=== PATIENT | female | born 1960 | race Caucasian/White ===

== ENCOUNTER 2018-06-10 14:37 | Emergency (ER) | payer OTHER ==
[2018-06-10] MEDS ORDERED: IBUPROFEN 600 MG TABLET (FP) PO ONE ×2 (14:40→15:05)
--- NOTE | 2018-06-10 14:41 | PDOC ---
History of Present Illness - General Chief Complaint: Injury Stated Complaint: LEFT THUMB INJURY - History of Present Illness Initial Comments: 58 year old female with PMH of menopause (hormone replacement therapy) and ADHD presenting with left thumb pain after tripping over a rolled up carpet while trying ot clear a space for the tree. She states the tripped forward onto her floor and banged her left knee, scraped her left forearm, and suffered severe pain in her left thumb without obvious initial deformity. Her fall motion was forward on an outstretched hand originally. Denies any head trauma, LOC, ches tpain, syncope, or other symptoms. 06/10/18 15:34 Past History - Past Medical History Allergies/Adverse Reactions: Allergies Allergy/AdvReac Type Severity Reaction Status Date / Time latex Allergy Intermediate Itching Verified 06/10/18 14:45 Home Medications: Ambulatory Orders Dextroamphetamine/Amphetamine [Adderall Xr 30 mg Capsule] 1 cap PO DAILY Estrogen,Con/M-Progest Acet [Prempro 0.45-1.5 mg Tablet] 1 tab PO DAILY Naproxen Sodium 550 mg PO BID PRN 10 Days #60 tablet 06/10/18 Psychiatric Problems: Yes Thyroid Disease: Yes - Immunization History Immunization Up to Date: Yes - Suicide/Smoking/Psychosocial Hx Smoking History: Current every day smoker Have you smoked in the past 12 months: Yes Number of Cigarettes Smoked Daily: 5 'Breaking Loose' booklet given: 08/10/15 Hx Alcohol Use: No Drug/Substance Use Hx: No Substance Use Type: None Review of Systems - Review of Systems Constitutional: No: Chills, Diaphoresis HEENTM: No: Eye Pain, Blurred Vision, Tearing, Nose Pain, Tinnitus Respiratory: No: Cough, Orthopnea, Shortness of Breath Cardiac (ROS): No: Edema, Irregular Heart Rate ABD/GI: No: Diarrhea, Nausea, Vomiting : No: Burning, Dysuria, Discharge Musculoskeletal: No: Back Pain, Joint Pain Integumentary: No: Bruising, Change in Color, Flushing, Lesions Neurological: No: Headache, Numbness, Paresthesia Psychiatric: No: Anxiety, Depression Endocrine: No: Flushing, Intolerance to Cold, Increased Thirst Hematologic/Lymphatic: No: Anemia, Blood Clots, Easy Bleeding *Physical Exam - Physical Exam General Appearance: Yes: Nourished, Appropriately Dressed. No: Apparent Distress HEENT: positive: EOMI, TIMOTHY, Normal ENT Inspection, Normal Voice Neck: positive: Trachea midline, Normal Thyroid, Supple. negative: Tender, Rigid Respiratory/Chest: positive: Lungs Clear, Normal Breath Sounds. negative: Chest Tender, Respiratory Distress, Accessory Muscle Use Cardiovascular: positive: Regular Rhythm, Regular Rate Gastrointestinal/Abdominal: positive: Normal Bowel Sounds, Flat, Soft. negative : Tender Lymphatic: negative: Adenopathy, Tenderness Musculoskeletal: positive: Decreased Range of Motion (left base of thumb and anatomic snuff box tenderness with slightly decreased ROM at thumb. No limitation with arm bending, supination, or pronation. ). negative: Normal Inspection Extremity: positive: Normal Capillary Refill, Tender. negative: Normal Inspection, Normal Range of Motion Integumentary: positive: Normal Color, Dry, Warm Neurologic: positive: Fully Oriented, Alert, Normal Mood/Affect, Normal Response , Motor Strength 5/5 Procedures - Splinting Splint Location: Left: Finger Pre-Proc Neuro Vasc Exam: normal Hand-Made Type: orthoglass Splint Type: Yes: Thumb Spica Post-Proc Neuro Vasc Exam: normal Jonathan Bandage: yes, 4" Sling: Yes Complications: No Post splint xray: No ED Treatment Course - RADIOLOGY Radiology Studies Ordered: Category Date Time Status WRIST W/HAND-LEFT* [RAD] Stat Radiology 06/10/18 14:39 Ordered Medical Decision Making - Medical Decision Making 58 year old with left thumb pain and tenderness after a fall forward on her outstretched hand. Hand/ wrist XR demonstrating distal fracture of left thumb and degenerative changes at base. However, anatomic snuff box tenderness cannot exclude occult scaphoid fracture. Thumb spica cast placed and patient discharged with naproxen and follow up with [facility]. 06/10/18 16:10 *DC/Admit/Observation/Transfer Diagnosis at time of Disposition: Fracture of thumb, left, closed Qualifiers: Encounter type: initial encounter Phalanx: distal Fracture alignment: displaced Qualified Code(s): S62.522A - Displaced fracture of distal phalanx of left thumb, initial encounter for closed fracture - Discharge Dispostion Condition at time of disposition: Improved Decision to Admit order: No - Prescriptions Prescriptions: Naproxen Sodium 550 mg PO BID PRN 10 Days #60 tablet PRN Reason: Sever thumb pain - Referrals Referrals: Tanmay Green MD [Staff Physician] - - Patient Instructions Printed Discharge Instructions: DI for Finger Fracture Additional Instructions: You fracture the end of your thumb. Please do not get the cast wet or remove it until you see Dr. Green. Please make an appointment with him ARLYN. Use the naproxen up to ttwice a day as needed for your thumb pain. Please return to the ED if you have new or worsening symptoms. - Post Discharge Activity
[2018-06-10 15:03] VITALS: BP 127/78; PULSE 89; TEMP 97.3; BMI 25.7
--- NOTE | 2018-06-10 15:55 | PDOC ---
Attending Attestation - Resident Resident Name: Ashley Judd - ED Attending Attestation I have performed the following: I have examined & evaluated the patient, The case was reviewed & discussed with the resident, I agree w/resident's findings & plan, Exceptions are as noted - HPI HPI: 06/10/18 15:52 Patient fell on her outstretched hand today, injuring her right thumb and right wrist. Complains of pain, specifically in the IPJ of the right thumb and the first CMC J. No other injuries were reported including injuries to the head neck chest abdomen spine pelvis or other extremities. 06/10/18 15:55 - Physicial Exam PE: 06/10/18 15:54 Physical exam reveals swelling and point tenderness of the IPJ. There is no angular or rotational deformity The MCP J shows no swelling or tenderness, and good range of motion. There was no stress tenderness of the UCL Swelling and tenderness is present at the CMC J without deformity. There are ecchymoses of the IPJ and CMC J. pulses are full, capillary refill intact in all 5 digits, and no distal sensory deficits. Motion of the IPJ is obviously restricted due to the injury 06/10/18 15:55 06/10/18 16:05 - Medical Decision Making 06/10/18 15:56 Assessment: X-ray reveals a fracture of the distal phalanx of the thumb, mid shaft, without apparent joint involvement. There are also extensive degenerative changes at the CMC J, making an occult fracture difficult to determine. However radiology reading is negative. 06/10/18 15:57 Plan: The thumb and wrist immobilized in a thumb spica. After splinting, the patient was more comfortable. She did not report distal numbness or tingling and had good range of motion of the distal phalanx. A sling was applied for comfort and she was given a copy of her x-rays to follow-up with a hand specialist within 1 week. The possibility of a surgical procedure was raised and dependent on orthopedist evaluation. Fully ambulatory and in no significant pain or other distress upon discharge to follow-up as directed 06/10/18 16:01
== END 2018-06-10 16:23 | disposition home or self-care (01) ==
LOC: FER 14:37
PROC: 2W3HX1Z Immobilization of Left Thumb using Splint (ICD-10-PCS; principal; 2018-06-10)
DX: S62.522A Displaced fracture of distal phalanx of left thumb, initial encounter for closed fracture (principal); W18.09XA Striking against other object with subsequent fall, initial encounter; Y93.89 Activity, other specified; Y92.89 Other specified places as the place of occurrence of the external cause; F17.210 Nicotine dependence, cigarettes, uncomplicated; E03.9 Hypothyroidism, unspecified; F99 Mental disorder, not otherwise specified; F90.9 Attention-deficit hyperactivity disorder, unspecified type
CPT/HCPCS: 73110-TC-LR-FY; 73130-TC-LT-FY; 99282-25

== ENCOUNTER 2021-04-09 14:10 | Inpatient (IN) | payer OTHER ==
[2021-04-09 14:43] LABS: EPITHELIAL CELLS MODERATE /hpf; URINE MUCUS 2+
[2021-04-09] MEDS ORDERED: ACETAMINOPHEN 1000 MG/100 ML VIAL IVPB ONE (15:05)
[2021-04-09] MEDS ORDERED: SODIUM CHLORIDE 0.9% 500 ML INFUS.BAG IV ONE (15:05)
[2021-04-09] MEDS ORDERED: ACETAMINOPHEN INJECTION 100 ML IVPB ONE (15:24)
[2021-04-09 15:52] LABS: BASO % 0.9 % (0-2.0); EOS % 2.7 % (0-4.5); HEMATOCRIT 41.8 % (32.4-45.2); HEMOGLOBIN 13.7 GM/dl (10.7-15.3); MCH 30.3 pg (25.7-33.7); MCHC 32.8 g/dl (32.0-36.0); MEAN CELL VOLUME 92.6 fl (80-96); MEAN PLT VOLUME 8.4 fl (7.5-11.1); MONO % 6.9 % (3.8-10.2); NEUT % 79.5 % (42.8-82.8); PLATELET COUNT 300 10^3/uL (134-434); RBC 4.51 M/mm3 (3.60-5.2); RDW 11.4 % (11.6-15.6); WHITE BLOOD COUNT 13.6 K/mm3 (4.0-10.8)
[2021-04-09 15:55] LABS: ACTIVATED PTT 27.4 SECONDS (25.2-36.5)
[2021-04-09 16:00] LABS: INR 1.21 (0.82-1.09); PROTHROMBIN TIME (PATIENT) 13.4 SEC (10.2-13.0)
[2021-04-09 16:02] LABS: ALBUMIN 3.4 g/dl (3.4-5.0); BILIRUBIN,TOTAL 0.5 mg/dl (0.2-1); CALCIUM 8.4 mg/dl (8.5-10); CREATININE 0.6 mg/dl (0.55-1.3); MAGNESIUM 1.8 mg/dL (1.8-2.4); TOT PROT 6.3 g/dl (6.4-8.2)
[2021-04-09] MEDS ORDERED: PIPERACILLIN/TAZOB 4.5 GM 4.5 GM in DEXTROSE 5%-WATER - 100 ML IVPB ONE (19:39)
[2021-04-09] MEDS ORDERED: PIPERACILLIN/TAZOBACTAM 4.5 GM VIAL IVPB ONE (19:42)
[2021-04-09] MEDS ORDERED: morphine CARPU-JECT 4 MG/1 ML DISP.SYRIN IVPUSH ONE (19:44)
[2021-04-09] MEDS ORDERED: morphine SULFATE 4 MG/ML VIAL ONE (19:49)
[2021-04-09 23:17] VITALS: BMI 26.6
[2021-04-09] MEDS: DEXTROSE 5%-0.45% SALINE 1,000 ML IV SCH (23:19)
[2021-04-09] MEDS: ACETAMINOPHEN 1000 MG/100 ML VIAL IVPB PRN (23:25)
[2021-04-10] MEDS ORDERED: morphine SULFATE 4 MG/ML VIAL IVPUSH PRN (02:59)
[2021-04-10] MEDS ORDERED: DEXTROSE 5%-WATER 100 ML IVPB ONE ×3 (03:33→08:55)
[2021-04-10] MEDS ORDERED: PIPERACILLIN/TAZOBACTAM 4.5 GM VIAL IVPB ONE ×2 (03:33→07:34)
[2021-04-10] MEDS: PIPERACILLIN/TAZOB 4.5 GM 4.5 GM in DEXTROSE 5%-WATER 100 ML IVPB SCH ×2 (03:41→08:59)
[2021-04-10] MEDS: ACETAMINOPHEN 1000 MG/100 ML VIAL IVPB PRN (05:45)
[2021-04-10 08:14] LABS: MEAN PLT VOLUME 8.5 fl (7.5-11.1)
[2021-04-10 08:21] LABS: HEMATOCRIT 36.4 % (32.4-45.2); HEMOGLOBIN 12.5 GM/dl (10.7-15.3); MCHC 34.4 g/dl (32.0-36.0); MEAN CELL VOLUME 90.2 fl (80-96); PLATELET COUNT 269 10^3/uL (134-434); RBC 4.04 M/mm3 (3.60-5.2); RDW 11.5 % (11.6-15.6); WHITE BLOOD COUNT 12.9 K/mm3 (4.0-10.8)
[2021-04-10 08:30] LABS: ALBUMIN 2.8 g/dl (3.4-5.0); BILIRUBIN,TOTAL 0.7 mg/dl (0.2-1); CALCIUM 7.9 mg/dl (8.5-10); CREATININE 0.6 mg/dl (0.55-1.3); TOT PROT 5.3 g/dl (6.4-8.2)
[2021-04-10] MEDS: ACETAMINOPHEN 1000 MG/100 ML VIAL IVPB SCH ×3 (11:35→22:47)
[2021-04-10 12:19] LABS: AMYLASE 34 U/L (25-115)
[2021-04-10 14:30] LABS: LIPASE 52 U/L (73-393)
[2021-04-10] MEDS ORDERED: DEXTROSE 5%-WATER - 50 ML IVPB ONE (16:29)
[2021-04-10] MEDS ORDERED: PIPERACILLIN/TAZOBACTAM 3.375 GM VIAL IVPB ONE (16:29)
[2021-04-10] MEDS: PIPERACILLIN/TAZOB 3.375 GM 3.375 GM in DEXTROSE 5%-WATER - 50 ML IVPB SCH (17:45)
[2021-04-10] MEDS: NICOTINE 21 MG/24 HOURS TOPICAL PATCH TD SCH (22:13)
[2021-04-10] MEDS: DEXTROSE 5%-0.45% SALINE 1,000 ML IV SCH (23:48)
[2021-04-11] MEDS ORDERED: PIPERACILLIN/TAZOBACTAM 3.375 GM VIAL IVPB ONE ×3 (01:07→15:22)
[2021-04-11] MEDS ORDERED: DEXTROSE 5%-WATER - 50 ML IVPB ONE ×3 (01:07→15:22)
[2021-04-11] MEDS: PIPERACILLIN/TAZOB 3.375 GM 3.375 GM in DEXTROSE 5%-WATER - 50 ML IVPB SCH ×3 (01:13→17:15)
[2021-04-11] MEDS ORDERED: PIPERACILLIN/TAZOB 4.5 GM 4.5 GM in DEXTROSE 5%-WATER 100 ML IVPB SCH (03:00)
[2021-04-11] MEDS: ACETAMINOPHEN 1000 MG/100 ML VIAL IVPB SCH ×3 (04:33→16:43)
[2021-04-11 09:41] LABS: BASO % 0.3 % (0-2.0); EOS % 3.3 % (0-4.5); HEMOGLOBIN 12.4 GM/dl (10.7-15.3); LYMPH % 9.5 % (8-40); MCH 31.2 pg (25.7-33.7); MCHC 34.3 g/dl (32.0-36.0); MEAN CELL VOLUME 90.9 fl (80-96); MEAN PLT VOLUME 8.4 fl (7.5-11.1); MONO % 6.8 % (3.8-10.2); NEUT % 80.1 % (42.8-82.8); PLATELET COUNT 272 10^3/uL (134-434); RBC 3.96 M/mm3 (3.60-5.2); RDW 11.5 % (11.6-15.6); WHITE BLOOD COUNT 10.9 K/mm3 (4.0-10.8)
[2021-04-11 09:47] LABS: CALCIUM 8.1 mg/dl (8.5-10); CREATININE 0.6 mg/dl (0.55-1.3); MAGNESIUM 1.9 mg/dL (1.8-2.4)
[2021-04-11] MEDS: NICOTINE 21 MG/24 HOURS TOPICAL PATCH TD SCH ×2 (10:00→21:56)
[2021-04-11] MEDS ORDERED: ENOXAPARIN NA (PORCINE) 30 MG/0.3 ML DISP.SYRIN SQ SCH ×2 (10:00)
[2021-04-11] MEDS: ENOXAPARIN NA (PORCINE) 40 MG/0.4 ML DISP.SYRIN SQ SCH (10:56)
[2021-04-11] MEDS ORDERED: POTASSIUM CHLORIDE TABS 20 MEQ TABLET.ER (FP) PO ONE (13:54)
[2021-04-11] MEDS ORDERED: MAGNESIUM OXIDE 400 MG TABLET (FP) PO ONE (13:56)
[2021-04-11] MEDS: PATIENT'S OWN MEDICATION (NON-FORMULARY) (Estrogen,Con/M-Progest Acet [Prempro 0.45-1.5 Mg PO SCH (15:30)
[2021-04-11] MEDS: DEXTROSE 5%-0.45% SALINE 1,000 ML IV SCH (21:26)
[2021-04-11] MEDS: ADVAIR PO SCH (21:28)
[2021-04-11] MEDS: ACETAMINOPHEN 1000 MG/100 ML VIAL IVPB PRN (22:11)
[2021-04-12] MEDS ORDERED: PIPERACILLIN/TAZOBACTAM 3.375 GM VIAL IVPB ONE ×2 (01:15→07:33)
[2021-04-12] MEDS ORDERED: DEXTROSE 5%-WATER - 50 ML IVPB ONE ×2 (01:15→07:33)
[2021-04-12] MEDS: PIPERACILLIN/TAZOB 3.375 GM 3.375 GM in DEXTROSE 5%-WATER - 50 ML IVPB SCH ×2 (01:26→10:26)
[2021-04-12] MEDS: NICOTINE 21 MG/24 HOURS TOPICAL PATCH TD SCH (04:18)
[2021-04-12] MEDS: ACETAMINOPHEN 1000 MG/100 ML VIAL IVPB PRN (04:19)
[2021-04-12 10:09] LABS: BASO % 0.1 % (0-2.0); EOS % 3.9 % (0-4.5); HEMATOCRIT 34.2 % (32.4-45.2); HEMOGLOBIN 11.9 GM/dL (10.7-15.3); LYMPH % 16.3 % (8-40); MCHC 34.8 g/dl (32.0-36.0); MEAN CELL VOLUME 89.1 fl (80-96); MEAN PLT VOLUME 8.6 fl (7.5-11.1); MONO % 8.9 % (3.8-10.2); NEUT % 70.8 % (42.8-82.8); PLATELET COUNT 299 10^3/uL (134-434); RBC 3.84 M/mm3 (3.60-5.2); RDW 12.5 % (11.6-15.6); WHITE BLOOD COUNT 9.2 K/mm3 (4.0-10.0)
[2021-04-12] MEDS: PATIENT'S OWN MEDICATION (NON-FORMULARY) (Estrogen,Con/M-Progest Acet [Prempro 0.45-1.5 Mg PO SCH (10:25)
[2021-04-12] MEDS: ADVAIR PO SCH (10:25)
[2021-04-12] MEDS: ENOXAPARIN NA (PORCINE) 40 MG/0.4 ML DISP.SYRIN SQ SCH (10:26)
[2021-04-12 14:07] VITALS: BP 120/61; PULSE 74; TEMP 98.4
== END 2021-04-12 14:52 | disposition home or self-care (01) | DRG 395 ==
LOC: FER 14:10 → FM/S 22:11
PROVIDERS: ADMIT Internal Medicine; ATTEND Nurse Practitioner Family
DX: K65.4 Sclerosing mesenteritis (principal); R10.11 Right upper quadrant pain; R50.9 Fever, unspecified; J44.9 Chronic obstructive pulmonary disease, unspecified; F90.9 Attention-deficit hyperactivity disorder, unspecified type; D72.829 Elevated white blood cell count, unspecified
CPT/HCPCS: 36415; 74177-TC; 80048; 80053; 81003; 81015; 82150; 83605; 83690; 83735; 84132; 85025; 85610; 85730; 87040; 87086; 93005; 99284-25; C9803; J0131; Q9967; U0003; U0005